=== PATIENT | male | born 1950 | race Caucasian/White ===

== ENCOUNTER 2017-06-27 10:28 | Emergency (ER) | payer OTHER | END 2017-06-27 11:41 | disposition home or self-care (01) | LOC: SCSER 10:28 | DX: S61.431A Puncture wound without foreign body of right hand, initial encounter (principal); W26.8XXA Contact with other sharp object(s), not elsewhere classified, initial encounter | CPT/HCPCS: 36415; 86706; 86803; 87389; 99283 ==